=== PATIENT | female | born 1990 | race Caucasian/White ===

== ENCOUNTER 2017-03-25 23:02 | Emergency (ER) | payer SELFPAY ==
[~2017-03-25] VITALS: Ht 167.6 cm; Wt 98.0 kg
[2017-03-25 23:05] VITALS: BP 134/80
== END 2017-03-26 00:34 | disposition left against medical advice (07) ==
LOC: ER 23:05
DX: Z53.21 Procedure and treatment not carried out due to patient leaving prior to being seen by health care provider (principal)